=== PATIENT | female | born 1980 | race Caucasian/White ===

== ENCOUNTER 2017-06-15 11:21 | Emergency (ER) | payer BC ==
[~2017-06-15] VITALS: Ht 154.9 cm; Wt 46.6 kg
[2017-06-15] MEDS ORDERED: normal saline 1000ML IV soln IVB ONE ×2 (11:50→13:55)
[2017-06-15] MEDS ORDERED: ketorolac trometh. 30mg/ml inj. IV ONE (11:55)
[2017-06-15] MEDS ORDERED: LORazepam 2 mg/ml vial IV ONE (11:55)
[2017-06-15] MEDS ORDERED: ondansetron/PF 4mg/2ml inj IV ONE (12:00)
[2017-06-15 12:16] LABS: BASOPHILS % (AUTO) 0.1 % (0-1); EOSINOPHILS % (AUTO) 0.2 % (0-6); HEMATOCRIT 40.5 % (35.0-45.0); HEMOGLOBIN 13.9 g/dl (12.0-16.0); LYMPHOCYTES # (AUTO) 0.6 X10'3 (1.1-4.8); LYMPHOCYTES % (AUTO) 8.6 % (21-51); MEAN CORPUSCULAR HEMOGLOBIN 31.9 PG (27.0-31.0); MEAN CORPUSCULAR HGB CONC 34.2 % (33.0-36.5); MEAN CORPUSCULAR VOLUME 93.4 FL (78-98); MEAN PLATELET VOLUME 8.3 FL (7.4-10.4); MONOCYTES # (AUTO) 0.4 X10'3 (0-0.9); MONOCYTES % (AUTO) 6.3 % (2-12); NEUTROPHILS # (AUTO) 5.6 X10'3 (1.8-7.7); NEUTROPHILS % (AUTO) 84.8 % (42-75); PLATELET COUNT 129 X10'3 (140-440); RED BLOOD COUNT 4.34 X10'6 (4.20-5.60); RED CELL DISTRIBUTION WIDTH 13.5 % (11.5-14.5); WHITE BLOOD COUNT 6.6 X10'3 (4.5-11.0)
[2017-06-15 12:26] LABS: PARTIAL THROMBOPLASTIN TIME 29 SECONDS (22-32); PROTHROMBIN TIME 10.8 SECONDS (9.0-12.0)
[2017-06-15] MEDS ORDERED: oseltamivir phos 75mg capsule PO ONE (12:45)
[2017-06-15 12:47] LABS: ALANINE AMINOTRANSFERASE 26 U/L (12-78); ALBUMIN 3.9 G/DL (3.4-5.0); ALKALINE PHOSPHATASE 52 IU/L (46-116); ANION GAP 10 (8-16); ASPARTATE AMINO TRANSFERASE 24 U/L (10-37); BILIRUBIN,TOTAL 0.3 MG/DL (0.1-1.0); BLOOD UREA NITROGEN 5 MG/DL (7-18); BUN/CREATININE RATIO 7.9 (6.6-38.0); CALCIUM 8.8 MG/DL (8.5-10.1); CHLORIDE 104 MMOL/L (99-107); CREATININE 0.63 MG/DL (0.40-0.90); GLUCOSE 93 MG/DL (70-104); POTASSIUM 3.6 MMOL/L (3.5-5.1); SODIUM 139 MMOL/L (135-145); TOTAL PROTEIN 7.7 G/DL (6.4-8.2); eGFR > 90 ML/MIN
[2017-06-15 12:54] LABS: NEUTROPHILS % (MANUAL) 79 % (42-75); TOTAL CELLS COUNTED 100
[2017-06-15 12:55] LABS: BANDS% (MANUAL) 13 % (0-10); LYMPHOCYTES % (MANUAL) 4 % (21-51); MONOCYTES % (MANUAL) 4 % (2-12); PLATELET ESTIMATE NORMAL
[2017-06-15 12:56] LABS: TOXIC VACUOLATION FEW
[2017-06-15] MEDS ORDERED: cefTRIAXone 1g/NS 100ml IVPB 100 ML IV ONE (13:25)
[2017-06-15] MEDS ORDERED: AMOX-580 PO (14:05)
[2017-06-15] MEDS ORDERED: TAM75C PO (14:05)
[2017-06-15] MEDS ORDERED: ONDA4TAB9 PO (14:05)
[2017-06-15 15:13] LABS: CLARITY,URINE Clear (Clear); COLOR,URINE Yellow (Yellow); GLUCOSE, URINE Negative (Neg); KETONES,URINE >=160 mg/dl (Neg); LEUKOCYTE ESTERASE ,URINE Negative (Neg); NITRITES, URINE Negative (Neg); OCCULT BLOOD,URINE Moderate (Neg); PH,URINE 5.5 (4.8-8.0); PROTEIN,URINE Negative (Neg)
[2017-06-15 15:17] LABS: UA COLLECTION TYPE CLN CATCH MIDSTREAM
[2017-06-15 15:24] LABS: MUCUS STRANDS MANY /LPF (Neg); SQUAMOUS EPITHELIAL CELL,UR MANY /LPF (FEW)
[2017-06-15 15:25] LABS: RBC,URINE 50-100 /HPF (0-2)
[2017-06-15 15:26] LABS: BACTERIA,URINE 1+ /HPF (Neg); WBC,URINE 0-4 /HPF (0-4)
[2017-06-15 15:51] VITALS: BP 118/76
== END 2017-06-15 15:53 | disposition home or self-care (01) ==
LOC: ER 11:23
DX: J11.1 Influenza due to unidentified influenza virus with other respiratory manifestations (principal)
CPT/HCPCS: 36415; 71045; 80053; 81001; 83605; 84145; 84484; 85025; 85610; 85730; 87040; 87502; 87503; 93005; 96361; 96365; 96366; 96375; 99285; J0696; J1885; J2060; J2405; J7030

== ENCOUNTER 2017-09-21 22:45 | Emergency (ER) | payer BC, OTHER ==
[~2017-09-21] VITALS: Ht 154.9 cm; Wt 45.5 kg
[2017-09-21] MEDS ORDERED: HYDROcodone/acetaminophen 10/325mg tab PO ONE (23:20)
[2017-09-21] MEDS ORDERED: ondansetron 4mg rapidly disintigrating tab PO ONE (23:20)
[2017-09-21] MEDS ORDERED: TETanus/Pertussis (Acell)/Diphther VAC/PF (Tdap-Adult) 0.5ml syringe IM ONE (23:25)
[2017-09-21] MEDS ORDERED: HYDR-569 PO (23:26)
[2017-09-21] MEDS ORDERED: AMOX-419 PO (23:26)
[2017-09-22 00:39] VITALS: BP 127/81
== END 2017-09-22 00:44 | disposition home or self-care (01) ==
LOC: ER 22:46
DX: S61.031A Puncture wound without foreign body of right thumb without damage to nail, initial encounter (principal); S61.032A Puncture wound without foreign body of left thumb without damage to nail, initial encounter; Z79.899 Other long term (current) drug therapy; W55.01XA Bitten by cat, initial encounter; Y93.89 Activity, other specified; Y92.89 Other specified places as the place of occurrence of the external cause; Y99.8 Other external cause status
CPT/HCPCS: 90471; 90715; 99283; 99284